=== PATIENT | female | born 1960 | race Caucasian/White ===

== ENCOUNTER → 2021-04-24 | Outpatient (CLI) | payer OTHER ==
[~2021-04-24] MED LIST: PREDNISONE20 MG PO
== END ==
LOC: KOH-I 03-07 13:00 → CT 04-01 10:00
DX: F17.210 Nicotine dependence, cigarettes, uncomplicated (principal); R10.2 Pelvic and perineal pain
CPT/HCPCS: 71250; 76856

== ENCOUNTER 2021-06-08 19:26 | Emergency (ER) | payer OTHER ==
[2021-06-08 21:19] LABS: HEMOGLOBIN 10.9 gm/dl (12.3-15.3); RED BLOOD COUNT 4.09 M/UL (4.00-5.10); WHITE BLOOD COUNT 17.5 K/UL (4.5-11.0)
[2021-06-08 21:45] LABS: BUN/CREATININE RATIO 15 (0-10)
== END 2021-06-09 00:10 | disposition home or self-care (01) ==
LOC: ER1 19:26
PROVIDERS: Family Medicine
DX: J44.1 Chronic obstructive pulmonary disease with (acute) exacerbation (principal); D72.829 Elevated white blood cell count, unspecified; R73.9 Hyperglycemia, unspecified; F15.90 Other stimulant use, unspecified, uncomplicated; Z88.0 Allergy status to penicillin; F17.200 Nicotine dependence, unspecified, uncomplicated
CPT/HCPCS: 71045; 80053; 82550; 82553; 83874; 83880; 84484; 85025; 93005; 94664; 99285

== ENCOUNTER 2022-05-30 08:07 | Emergency (ER) | payer OTHER ==
[2022-05-30 10:25] LABS: HEMOGLOBIN 10.2 gm/dl (12.3-15.3); RED BLOOD COUNT 4.67 M/UL (4.00-5.10); WHITE BLOOD COUNT 14.5 K/UL (4.5-11.0)
[2022-05-30 10:50] LABS: BUN/CREATININE RATIO 18 (0-10)
[2022-05-30] MEDS ORDERED: PERCOCET 5/325 T1 EA PO (17:36)
== END 2022-05-30 18:00 | disposition home or self-care (01) ==
LOC: ER1 08:07
PROVIDERS: Family Medicine
DX: S16.1XXA Strain of muscle, fascia and tendon at neck level, initial encounter (principal); N18.30 Chronic kidney disease, stage 3 unspecified; I50.9 Heart failure, unspecified; J44.9 Chronic obstructive pulmonary disease, unspecified; X50.9XXA Other and unspecified overexertion or strenuous movements or postures, initial encounter
CPT/HCPCS: 70496; 70498; 71250; 72125; 72141; 80053; 81001; 82550; 82553; 84484; 85025; 85610; 93005; 94664; 96374; 96375; 99284; J2270; J2405; Q9967